=== PATIENT | male | born 1985 | race Caucasian/White ===

== ENCOUNTER 2017-06-18 19:46 | Emergency (ER) | payer BC ==
[~2017-06-18] VITALS: Ht 182.8 cm; Wt 93.0 kg
[2017-06-18] MEDS ORDERED: OMNICEF300 MG PO (20:24)
== END 2017-06-18 20:26 | disposition home or self-care (01) ==
LOC: ED 19:46
DX: J02.9 Acute pharyngitis, unspecified (principal); Z98.890 Other specified postprocedural states